=== PATIENT | female | born 1995 | race Caucasian/White ===

== ENCOUNTER 2017-06-24 03:53 | Emergency (ER) | payer BC, OTHER ==
[2017-06-24 04:26] LABS: BASOPHILS # (AUTO) 0.1 10^3/uL (0.0-0.1); BASOPHILS % (AUTO) 1.5 %; EOSINOPHILS % (AUTO) 0.5 %; HGB - HEMOGLOBIN 15.1 g/dL (12.0-16.0); LYMPHOCYTES % (AUTO) 22.1 %; MEAN CORPUSCULAR HEMOGLOBIN 33.6 pg (27.0-31.0); MEAN CORPUSCULAR HGB CONC 35.8 g/dL (32.0-36.0); MEAN CORPUSCULAR VOLUME 93.8 fL (81.0-99.0); MEAN PLATELET VOLUME 7.7 fL (7.9-10.8); MONOCYTES # (AUTO) 0.6 10^3/uL (0.0-1.0); MONOCYTES % (AUTO) 14.1 %; NEUTROPHILS # (AUTO) 2.8 10^3/uL (1.5-6.6); NEUTROPHILS % (AUTO) 61.8 %; PLT - PLATELET COUNT 160 10^3/uL (130-450); RED CELL DISTRIBUTION WIDTH 12.8 % (12.0-15.0); WHITE BLOOD COUNT 4.5 x10^3/uL (4.8-10.8)
[2017-06-24 04:27] LABS: BILIRUBIN,URINE NEGATIVE (NEGATIVE); GLUCOSE, URINE (UA) NEGATIVE (NEGATIVE); KETONES,URINE (UA) NEGATIVE (NEGATIVE); LEUKOCYTE ESTERASE, URINE TRACE (NEGATIVE); NITRITE,URINE NEGATIVE (NEGATIVE); OCCULT BLOOD,URINE TRACE-LYSE (NEGATIVE); PH,URINE 5.5 PH (5.0-7.5); PROTEIN,URINE NEGATIVE (NEGATIVE); UROBILINOGEN,URINE 0.2 (NORMAL) E.U./dL (NORMAL)
[2017-06-24 04:29] LABS: CLARITY,URINE CLEAR (CLEAR); HCG UR QUAL NEGATIVE
[2017-06-24 04:33] LABS: CALCIUM 8.6 mg/dL (8.5-10.3); CREATININE 0.7 mg/dL (0.4-1.0)
[2017-06-24 04:38] LABS: RBC,URINE 0-5 /HPF (0-5); SQUAMOUS EPITHELIAL CELL,UR MANY Squamous (<= Few)
[2017-06-24 04:39] LABS: BACTERIA,URINE Few /HPF (None Seen)
[2017-06-24] MEDS ORDERED: KETOROLAC 60 MG/2 ML VIAL IM STA (04:48)
--- NOTE | 2017-06-24 05:15 | ED Physician Documentation ---
History of Present Illness - Stated complaint Stated Complaint: FEVERISH,NUMB FINGERTIPS - Chief complaint Chief Complaint: General - History obtained from History obtained from: Patient, Family, Friend - History of Present Illness Timing: How many weeks ago (1) - Additonal information Additional information: Patient is a 22 year old female who is presenting to the emergency department for generalized weakness, tiredness sore throat and a lump on the back of her neck. Patient states that she went to see her doctor who did a strep test but was negative and was not sure exactly what was going on. patient states that she does have a history of mono. Review of Systems Constitutional: reports: Fever, Chills, Myalgias Eyes: denies: Decreased vision, Photophobia Ears: denies: Ear pain, Drainage/discharge Nose: denies: Congestion Throat: reports: Sore throat. denies: Dental pain / toothache Cardiac: denies: Chest pain / pressure Respiratory: denies: Cough, Wheezing GI: reports: Abdominal Pain, Constipation. denies: Nausea, Vomiting : denies: Dysuria, Frequency Skin: reports: Lesions. denies: Rash Musculoskeletal: reports: Neck pain Neurologic: reports: Generalized weakness, Numbness, Headache. denies: Focal weakness, Head injury Immunocompromised: denies: Immunocompromised PD PAST MEDICAL HISTORY - Past Medical History Respiratory: Asthma, Other - Past Surgical History Past Surgical History: No - Present Medications Home Medications: Ambulatory Orders Medication Instructions Recorded Confirmed No Known Home Medications [No 02/06/15 06/24/17 Known Home Medications] - Allergies Allergies/Adverse Reactions: Allergies Allergy/AdvReac Type Severity Reaction Status Date / Time amitriptyline Allergy Hives Verified 06/24/17 04:01 - Social History Does the pt smoke?: No Smoking Status: Never smoker Does the pt drink ETOH?: No Does the pt have substance abuse?: No - Immunizations Immunizations are current?: Yes PD ED PE NORMAL - Vitals Vital signs reviewed: Yes - General General: Alert and oriented X 3, No acute distress - HEENT HEENT: Atraumatic, PERRL, Moist mucous membranes - Cardiac Cardiac: RRR, No murmur - Respiratory Respiratory: No respiratory distress - Abdomen Abdomen: Soft, Non tender, No organomegaly - Derm Derm: Normal color, Warm and dry, No rash - Extremities Extremities: No deformity, Normal ROM s pain - Neuro Neuro: Alert and oriented X 3, No motor deficit, No sensory deficit, Normal speech Eye Opening: Spontaneous Motor: Obeys Commands Verbal: Oriented GCS Score: 15 - Psych Psych: Normal mood PD ED PE EXPANDED - HEENT HEENT: Soft palate petecchiae - Neck Neck: Adenopathy (left posterior adenopathy) Results - Vitals Vitals: Vital Signs - 24 hr 06/24/17 06/24/17 03:58 05:21 Temperature 37.0 C Heart Rate 105 H 77 Respiratory 16 16 Rate Blood Pressure 116/68 109/63 O2 Saturation 98 95 Oxygen O2 Source Room air - Labs Labs: Laboratory Tests 06/24/17 06/24/17 06/24/17 04:11 04:12 04:20 WBC 4.5 L RBC 4.50 Hgb 15.1 Hct 42.2 MCV 93.8 MCH 33.6 H MCHC 35.8 RDW 12.8 Plt Count 160 MPV 7.7 L Neut # 2.8 Lymph # 1.0 L [place] # 0.6 Eos # 0.0 Baso # 0.1 Absolute Nucleated RBC 0.01 Nucleated RBC % 0.1 Sodium Potassium Chloride Carbon Dioxide Anion Gap BUN Creatinine Estimated GFR (MDRD) Glucose Calcium Urine Color YELLOW Urine Clarity CLEAR Urine pH 5.5 Ur Specific [place] 1.025 Urine Protein NEGATIVE Urine Glucose (UA) NEGATIVE Urine Ketones NEGATIVE Urine Occult Blood TRACE-LYSE Urine Nitrite NEGATIVE Urine Bilirubin NEGATIVE Urine Urobilinogen 0.2 (NORMAL) Ur Leukocyte Esterase TRACE H Urine RBC 0-5 Urine WBC 4-5 Ur Squamous Epith Cells MANY Squamous H Urine Bacteria Few Ur Microscopic Review INDICATED Urine Culture Comments NOT INDICATED Urine HCG, Qual NEGATIVE Infectious [place] Assay Influenza A (Rapid) Negative Influenza B (Rapid) Negative Influenza Types A,B Ag - 06/24/17 06/24/17 04:20 04:20 WBC RBC Hgb Hct MCV MCH MCHC RDW Plt Count MPV Neut # Lymph # [place] # Eos # Baso # Absolute Nucleated RBC Nucleated RBC % Sodium 136 Potassium 3.2 L Chloride 108 Carbon Dioxide 21 Anion Gap 7.0 BUN 9 Creatinine 0.7 Estimated GFR (MDRD) 107 Glucose 110 H Calcium 8.6 Urine Color Urine Clarity Urine pH Ur Specific [place] Urine Protein Urine Glucose (UA) Urine Ketones Urine Occult Blood Urine Nitrite Urine Bilirubin Urine Urobilinogen Ur Leukocyte Esterase Urine RBC Urine WBC Ur Squamous Epith Cells Urine Bacteria Ur Microscopic Review Urine Culture Comments Urine HCG, Qual Infectious [place] Assay NEGATIVE Influenza A (Rapid) Influenza B (Rapid) Influenza Types A,B Ag PD MEDICAL DECISION MAKING - ED course Complexity details: reviewed old records, reviewed results, re-evaluated patient , considered differential, d/w patient, d/w family ED course: patient was seen and examined at bedside. labs were drawn, urine was collected. patient was treated with toradol for pain. Patient's symptoms were consistent with mono even though the test was negative. Patient required no further testing at this time and was stable for discharge with outpatient follow up. Departure - Departure Disposition: Home, Self Care Clinical Impression: Mononucleosis syndrome Condition: Good Instructions: ED Mononucleosis Follow-Up: primary,care provider [Other] - Within 1 week Comments: Your symptoms today are likely being caused by mononucleosis. There is no cure for it, only supportive treatment. You should continue to work with your infectious disease doctor. You should stay well hydrated and get plenty of rest. You should try to avoid tylenol and contact sports or strenuous physical events. You may return to the emergency department at any time for new, worsening or uncontrollable symptoms. Discharge Date/Time: 06/24/17 05:21
[2017-06-24 05:22] VITALS: BP 109/63
== END 2017-06-24 05:21 | disposition home or self-care (01) ==
LOC: ED 03:53
DX: B27.90 Infectious mononucleosis, unspecified without complication (principal)
CPT/HCPCS: 80048; 81001; 81003; 81025; 85025; 86308; 87086; 87275; 87276; 96372; 99283

== ENCOUNTER 2017-07-01 10:06 | Outpatient (CLI) | payer OTHER ==
[2017-07-05 05:51] LABS: HSV 2 DNA NOT DETECTED; SOURCE VULVA
== END 2017-07-01 10:07 | disposition home or self-care (01) ==
LOC: LAB.R 10:06
PROVIDERS: ATTEND Nurse Practitioner Obstetrics & Gynecology
DX: N89.8 Other specified noninflammatory disorders of vagina (principal)
CPT/HCPCS: 87529

== ENCOUNTER 2017-07-01 11:05 | Outpatient (CLI) | payer OTHER ==
[2017-07-05 13:36] LABS: HSV 1 IGG TYPE SPECIFIC AB <0.90 index; HSV 2 IGG TYPE SPECIFIC AB <0.90 index
== END 2017-07-01 11:06 | disposition home or self-care (01) ==
LOC: LAB 11:05
PROVIDERS: ATTEND Nurse Practitioner Obstetrics & Gynecology
DX: N89.8 Other specified noninflammatory disorders of vagina (principal)
CPT/HCPCS: 36415; 81599; 86695; 86696; 87529

== ENCOUNTER 2017-07-07 10:47 | Outpatient (CLI) | payer OTHER ==
[2017-07-07 11:55] LABS: HGB - HEMOGLOBIN 14.5 g/dL (12.0-16.0); MEAN CORPUSCULAR HEMOGLOBIN 32.3 pg (27.0-31.0); MEAN CORPUSCULAR HGB CONC 35.2 g/dL (32.0-36.0); MEAN CORPUSCULAR VOLUME 91.7 fL (81.0-99.0); MEAN PLATELET VOLUME 7.1 fL (7.9-10.8); RED BLOOD COUNT 4.49 10^6/uL (4.20-5.40); RED CELL DISTRIBUTION WIDTH 12.7 % (12.0-15.0)
[2017-07-08 09:11] LABS: HIV AG/AB 4TH GEN NON-REACTIVE (NON-REACTIVE)
[2017-07-09 20:27] LABS: SOURCE BLOOD
== END 2017-07-07 10:48 | disposition home or self-care (01) ==
LOC: LAB 10:47
PROVIDERS: ATTEND Nurse Practitioner Obstetrics & Gynecology
DX: N76.6 Ulceration of vulva (principal)
CPT/HCPCS: 36415; 81599; 85651; 86140; 86592; 87389; 87798

== ENCOUNTER 2017-12-09 13:22 | Outpatient (CLI) | payer OTHER ==
[2017-12-09 15:02] LABS: CRP - C-REACTIVE PROTEIN < 1.0 mg/dL (0-1.0)
[2017-12-09 15:15] LABS: THYROID STIMULATING HORMONE 1.45 uIU/mL (0.34-5.60)
[2017-12-09 15:26] LABS: FOLATE 18.18 ng/mL (5.90 - >24.8)
[2017-12-09 17:06] LABS: RHEUMATOID FACTOR NEGATIVE (Negative)
== END 2017-12-09 13:23 | disposition home or self-care (01) ==
LOC: LAB 13:22
PROVIDERS: ATTEND Psychiatry & Neurology Neurology
DX: G90.09 Other idiopathic peripheral autonomic neuropathy (principal)
CPT/HCPCS: 36415; 81599; 82164; 82306; 82384; 82607; 82746; 83520; 84443; 85651; 86038; 86140; 86235; 86334; 86430

== ENCOUNTER 2018-01-10 08:00 | Outpatient (CLI) | payer OTHER | END 2018-01-10 23:59 | LOC: LAB.R 08:00 | PROVIDERS: ATTEND Registered Nurse | DX: R10.2 Pelvic and perineal pain (principal) | CPT/HCPCS: 87086; 87491; 87591 ==

== ENCOUNTER 2018-01-13 18:55 | Outpatient (CLI) | payer OTHER ==
--- NOTE | 2018-01-14 02:20 | Ultrasound Report ---
Reason: PELVIC PAIN Procedure Date: 01/13/2018 Accession Number: [id number] / [id number] Procedure: US - Pelvic Complete CPT Code: FULL RESULT: EXAM: PELVIC ULTRASOUND EXAM DATE: 01/13/2018 08:49 PM. CLINICAL HISTORY: Pelvic pain. COMPARISON: None. TECHNIQUE: Realtime transabdominal pelvic scan performed to identify the uterus and adnexa and as an overview of other pelvic structures, with static image documentation. FINDINGS: Uterus: 7.9 x 5.8 x 3.3 cm, volume 78.6 cc. Anteverted position. Normal overall size and echotexture. Masses: None. Endometrium: 3.6 mm. Normal. Cervix: Unremarkable. Right Ovary: 2.3 x 1.3 x 1.2 cm, volume 1.9 cc. Normal echotexture and blood flow. Left Ovary: 2.6 x 1.5 x 1.8 cm, volume 3.7 cc. Normal echotexture and blood flow. Free Fluid: None. Other: None. IMPRESSION: Normal pelvic ultrasound. RADIA
== END 2018-01-13 18:56 | disposition home or self-care (01) ==
LOC: DI 18:55
PROVIDERS: ATTEND Registered Nurse
DX: R10.2 Pelvic and perineal pain (principal)
CPT/HCPCS: 76856

== ENCOUNTER 2018-01-25 00:36 | Emergency (ER) | payer OTHER ==
--- NOTE | 2018-01-25 01:03 | ED Physician Documentation ---
PD HPI CHEST PAIN - Stated complaint Stated Complaint: LT UPPER RIB PAIN - Chief complaint Chief Complaint: General - History obtained from History obtained from: Patient - History of Present Illness Timing - onset: Today Timing - details: Intermittant Quality: Pain Location: Left chest Worsened by: Movement, Palpation, Position Associated symptoms: Shortness of air. No: Nausea, Vomiting, Feeling faint / dizzy Similar symptoms before: Work up / diagnostics Recently seen: Not recently seen - Additional information Additional information: Patient is a 22 year old female presenting to the emergency department for chest pain. patient states that the pain started today. patient reports that the pain got worse with sweeping and that she recently was doing physical therapy and had to use resistance bands. patient states that tonight she became a little more worried because she had some shortness of breath secondary to the pain and the patient has had spontaneous pneumothoracies bilaterally. Review of Systems Ten Systems: 10 systems reviewed and negative Cardiac: reports: Chest pain / pressure Respiratory: denies: Dyspnea, Cough, Wheezing PD PAST MEDICAL HISTORY - Past Medical History Respiratory: Asthma, Other Other Past Medical History: spontaneous pnuemo x 2 - Past Surgical History Past Surgical History: No - Present Medications Home Medications: Ambulatory Orders Medication Instructions Recorded Confirmed Lidocaine Patch 5% [Lidoderm Patch] 1 each TOP DAILY #10 patch 01/25/18 - Allergies Allergies/Adverse Reactions: Allergies Allergy/AdvReac Type Severity Reaction Status Date / Time amitriptyline Allergy Hives Verified 01/25/18 00:44 - Social History Does the pt smoke?: No Smoking Status: Never smoker Does the pt drink ETOH?: No Does the pt have substance abuse?: No - Immunizations Immunizations are current?: Yes PD ED PE NORMAL - Vitals Vital signs reviewed: Yes - General General: Alert and oriented X 3, No acute distress - HEENT HEENT: Atraumatic, PERRL - Neck Neck: No JVD - Cardiac Cardiac: RRR, No murmur - Respiratory Respiratory: No respiratory distress, Clear bilaterally - Derm Derm: Normal color, No rash - Extremities Extremities: No deformity, No calf tenderness / cord - Neuro Neuro: Alert and oriented X 3, No motor deficit, Normal speech Eye Opening: Spontaneous PD ED PE EXPANDED - Cardiac Cardiac: Chest wall TTP (tenderness to palpation of left anterior chest wall) Results - Vitals Vitals: Vital Signs - 24 hr 01/25/18 00:41 Temperature 36.8 C Heart Rate 109 H Respiratory 18 Rate Blood Pressure 134/78 H O2 Saturation 98 Oxygen O2 Source Room air - Rads (name of study) chest x-ray Radiology: Final report received (no pneumothorax or infiltrate) PD MEDICAL DECISION MAKING - ED course Complexity details: reviewed old records, reviewed results, re-evaluated patient, considered differential, d/w patient, d/w family ED course: Patient was seen and examined at bedside. patient's symptoms seemed likely to be muscular but do to patient's history chest x-ray was ordered. patient also stated that she persistently was tachycardic and often was in the 120s. When patient returned from imaging results were reviewed and revealed no pneumo. patient was treated with a lidoderm patch and was stable for discharge with outpatient follow up. - Sepsis Event Vital Signs: Vital Signs - 24 hr 01/25/18 00:41 Temperature 36.8 C Heart Rate 109 H Respiratory 18 Rate Blood Pressure 134/78 H O2 Saturation 98 Oxygen O2 Source Room air Departure - Departure Disposition: 01 Home, Self Care Clinical Impression: Chest wall pain Condition: Good Instructions: ED Strain Chest Wall Follow-Up: Becca Simons PA [Primary Care Provider] - Within 3 Days Prescriptions: Lidocaine Patch 5% [Lidoderm Patch] 1 each TOP DAILY #10 patch Comments: Your diagnostics today were within normal limits. there is no sign of pnuemothorax or pneumonia. It is likely secondary to muscle strain. You should take motrin or tylenol as needed for pain and you can apply ice/heat and lidoderm patches. You should follow up with your doctor if symptoms persist. You may return to the emergency department at any time for new, worsening or uncontrollable symptoms.
--- NOTE | 2018-01-25 01:30 | XRAY Report ---
Reason: chest pain, hx of spontaneous pneumo Procedure Date: 01/25/2018 Accession Number: [id number] / [id number] Procedure: XR - Chest 1 View X-Ray CPT Code: 59161 FULL RESULT: EXAM: CHEST RADIOGRAPHY EXAM DATE: 01/25/2018 01:05 AM. CLINICAL HISTORY: Chest pain, history of spontaneous pneumothorax. COMPARISON: CHEST 2 VIEW PA/LAT 02/06/2015 5:37 PM. TECHNIQUE: 1 view. FINDINGS: Lungs/Pleura: New elevated right hemidiaphragm with mild blunting of the right costophrenic angle. No consolidation or pneumothorax. Mediastinum: Stable cardiomediastinal silhouette. Other: None. IMPRESSION: 1. New elevated right hemidiaphragm. Mild blunting of the right costophrenic angle. Small right pleural effusion or pleural thickening not excluded. 2. No pneumothorax or consolidation. RADIA
[2018-01-25 01:39] VITALS: BP 118/80
[2018-01-25] MEDS ORDERED: LIDOCAINE PATCH 5% TOP STA (01:49)
== END 2018-01-25 02:02 | disposition home or self-care (01) ==
LOC: ED 00:36
DX: R07.89 Other chest pain (principal)
CPT/HCPCS: 71045; 99283; A9270

== ENCOUNTER 2018-03-08 15:37 | Outpatient (CLI) | payer OTHER | END 2018-03-08 23:59 | disposition home or self-care (01) | LOC: LAB.R 15:37 | PROVIDERS: ATTEND Registered Nurse | DX: R10.2 Pelvic and perineal pain (principal); B37.3 Candidiasis of vulva and vagina; N76.0 Acute vaginitis | CPT/HCPCS: 87491; 87591 ==

== ENCOUNTER 2018-05-23 08:00 | Outpatient (CLI) | payer BC, OTHER | END 2018-05-23 23:59 | disposition home or self-care (01) | LOC: LAB.R 08:00 | PROVIDERS: ATTEND Registered Nurse | DX: N94.10 Unspecified dyspareunia (principal) | CPT/HCPCS: 87491; 87591 ==

== ENCOUNTER 2018-06-19 11:18 | Outpatient (CLI) | payer BC | END 2018-06-19 11:19 | disposition home or self-care (01) | LOC: DI 11:18 | PROVIDERS: ATTEND Physician Assistant | DX: I49.8 Other specified cardiac arrhythmias (principal) | CPT/HCPCS: 93306 ==

== ENCOUNTER 2018-06-21 13:48 | Outpatient (CLI) | payer BC ==
[2018-06-21 14:32] LABS: % IRON SATURATION 36 % (20-50); IRON 116 ug/dL (28-170); TOTAL IRON BINDING CAPACITY 323 ug/dL (250-450); TRANSFERRIN 231 mg/dL (192-382)
[2018-06-21 14:33] LABS: BASOPHILS # (AUTO) 0.1 10^3/uL (0.0-0.1); BASOPHILS % (AUTO) 0.8 %; EOSINOPHILS # (AUTO) 0.1 10^3/uL (0.0-0.7); EOSINOPHILS % (AUTO) 1.2 %; LYMPHOCYTES # (AUTO) 2.5 10^3/uL (1.5-3.5); LYMPHOCYTES % (AUTO) 38.5 %; MEAN CORPUSCULAR HGB CONC 34.7 g/dL (32.0-36.0); MEAN PLATELET VOLUME 8.2 fL (7.9-10.8); MONOCYTES # (AUTO) 0.4 10^3/uL (0.0-1.0); NEUTROPHILS # (AUTO) 3.3 10^3/uL (1.5-6.6); NEUTROPHILS % (AUTO) 52.5 %; PLT - PLATELET COUNT 218 10^3/uL (130-450); RED BLOOD COUNT 4.85 10^6/uL (4.20-5.40); RED CELL DISTRIBUTION WIDTH 12.4 % (12.0-15.0); WHITE BLOOD COUNT 6.4 x10^3/uL (4.8-10.8)
[2018-06-21 14:34] LABS: THYROID STIMULATING HORMONE 1.81 uIU/mL (0.34-5.60)
[2018-06-21 14:41] LABS: FERRITIN 38.8 ng/mL (11.0-306.8)
== END 2018-06-21 13:49 | disposition home or self-care (01) ==
LOC: LAB 13:48
PROVIDERS: ATTEND Registered Nurse
DX: R40.0 Somnolence (principal)
CPT/HCPCS: 36415; 82306; 82607; 82728; 83540; 84443; 84466; 85025

== ENCOUNTER 2019-01-03 14:50 | Outpatient (CLI) | payer BC ==
[2019-01-03 18:55] LABS: BASOPHILS # (AUTO) 0.1 10^3/uL (0.0-0.1); BASOPHILS % (AUTO) 1.1 %; EOSINOPHILS # (AUTO) 0.1 10^3/uL (0.0-0.7); EOSINOPHILS % (AUTO) 0.8 %; HGB - HEMOGLOBIN 14.7 g/dL (12.0-16.0); LYMPHOCYTES # (AUTO) 2.1 10^3/uL (1.5-3.5); LYMPHOCYTES % (AUTO) 33.7 %; MEAN CORPUSCULAR HEMOGLOBIN 33.2 pg (27.0-31.0); MEAN CORPUSCULAR HGB CONC 34.1 g/dL (32.0-36.0); MEAN CORPUSCULAR VOLUME 97.3 fL (81.0-99.0); MEAN PLATELET VOLUME 11.2 fL (7.9-10.8); MONOCYTES # (AUTO) 0.4 10^3/uL (0.0-1.0); MONOCYTES % (AUTO) 6.7 %; NEUTROPHILS # (AUTO) 3.6 10^3/uL (1.5-6.6); NEUTROPHILS % (AUTO) 57.2 %; PLT - PLATELET COUNT 228 10^3/uL (130-450); RED BLOOD COUNT 4.43 10^6/uL (4.20-5.40); RED CELL DISTRIBUTION WIDTH 12.2 % (12.0-15.0); WHITE BLOOD COUNT 6.3 x10^3/uL (4.8-10.8)
[2019-01-03 19:34] LABS: ALBUMIN 4.7 g/dL (3.2-5.5); ALBUMIN/GLOBULIN RATIO 1.4 (1.0-2.2); BILIRUBIN,TOTAL 2.6 mg/dL (0.2-1.0); CALCIUM 9.5 mg/dL (8.5-10.3); CREATININE 0.7 mg/dL (0.4-1.0); TOTAL PROTEIN 8.1 g/dL (6.7-8.2)
== END 2019-01-03 23:59 | disposition home or self-care (01) ==
LOC: LAB.WCP 14:50
PROVIDERS: ATTEND Family Medicine
DX: E55.9 Vitamin D deficiency, unspecified (principal); J45.20 Mild intermittent asthma, uncomplicated; R53.83 Other fatigue
CPT/HCPCS: 36415; 80053; 82306; 84443; 85025

== ENCOUNTER 2019-03-02 08:00 | Outpatient (CLI) | payer BC ==
[2019-03-02 22:30] LABS: TRICHOMONAS VAGINALIS DNA NEGATIVE (NEGATIVE)
== END 2019-03-02 23:59 | disposition home or self-care (01) ==
LOC: LAB.R 08:00
PROVIDERS: ATTEND Obstetrics & Gynecology
DX: Z11.3 Encounter for screening for infections with a predominantly sexual mode of transmission (principal)
CPT/HCPCS: 87491; 87591; 87661

== ENCOUNTER 2019-04-02 00:44 | Emergency (ER) | payer BC ==
[2019-04-02 01:07] LABS: BASOPHILS # (AUTO) 0.1 10^3/uL (0.0-0.1); BASOPHILS % (AUTO) 0.8 %; EOSINOPHILS # (AUTO) 0.1 10^3/uL (0.0-0.7); EOSINOPHILS % (AUTO) 1.7 %; HGB - HEMOGLOBIN 15.3 g/dL (12.0-16.0); LYMPHOCYTES # (AUTO) 3.4 10^3/uL (1.5-3.5); LYMPHOCYTES % (AUTO) 40.2 %; MEAN CORPUSCULAR HEMOGLOBIN 33.8 pg (27.0-31.0); MEAN CORPUSCULAR HGB CONC 34.9 g/dL (32.0-36.0); MEAN CORPUSCULAR VOLUME 96.9 fL (81.0-99.0); MEAN PLATELET VOLUME 10.3 fL (7.9-10.8); MONOCYTES # (AUTO) 0.7 10^3/uL (0.0-1.0); MONOCYTES % (AUTO) 7.8 %; NEUTROPHILS # (AUTO) 4.1 10^3/uL (1.5-6.6); PLT - PLATELET COUNT 231 10^3/uL (130-450); RED BLOOD COUNT 4.53 10^6/uL (4.20-5.40); RED CELL DISTRIBUTION WIDTH 11.9 % (12.0-15.0); WHITE BLOOD COUNT 8.4 x10^3/uL (4.8-10.8)
[2019-04-02 01:21] LABS: ALBUMIN 4.6 g/dL (3.2-5.5); ALBUMIN/GLOBULIN RATIO 1.3 (1.0-2.2); BILIRUBIN,TOTAL 1.4 mg/dL (0.2-1.0); CALCIUM 9.5 mg/dL (8.5-10.3); CREATININE 0.7 mg/dL (0.4-1.0); TOTAL PROTEIN 8.2 g/dL (6.7-8.2)
[2019-04-02 01:28] LABS: BILIRUBIN,URINE NEGATIVE (NEGATIVE); CLARITY,URINE CLEAR (CLEAR); GLUCOSE, URINE (UA) NEGATIVE (NEGATIVE); KETONES,URINE (UA) NEGATIVE (NEGATIVE); LEUKOCYTE ESTERASE, URINE MODERATE (NEGATIVE); NITRITE,URINE NEGATIVE (NEGATIVE); OCCULT BLOOD,URINE LARGE (NEGATIVE); PROTEIN,URINE NEGATIVE (NEGATIVE); UROBILINOGEN,URINE 0.2 (NORMAL) E.U./dL (NORMAL)
[2019-04-02 01:29] LABS: HCG UR QUAL NEGATIVE
[2019-04-02 01:34] LABS: BACTERIA,URINE Few /HPF (None Seen); SQUAMOUS EPITHELIAL CELL,UR MANY Squamous (<= Few)
[2019-04-02] MEDS ORDERED: KETOROLAC 60 MG/2 ML VIAL IM STA (01:43)
--- NOTE | 2019-04-02 01:44 | ED Physician Documentation ---
PD HPI FEMALE - Stated complaint Stated Complaint: AB PX - Chief complaint Chief Complaint: Abd Pain - History obtained from History obtained from: Patient, Family - History of Present Illness Timing - onset: Today Timing - duration: Hours Timing - details: Abrupt onset, Still present Associated symptoms: Pelvic pain, Vaginal bleeding Contributing factors: IUD Similar symptoms before: Diagnosis (pain associated with IUD) Recently seen: Clinic - Additional information Additional information: 24-year-old female with a history of intermittent pelvic pain has recently stopped the use of Depo-Provera and switched to Mirena. She had a Mirena placed 1 month ago. She has been having some periodic sharp cramping in the pelvis. Today she has had episodes lasting longer and more painful. She is come to the emergency department for evaluation. She does have some bleeding associated with this and she has had some dark blood. Review of Systems Constitutional: denies: Fever Eyes: denies: Decreased vision Ears: denies: Ear pain Nose: denies: Congestion Throat: denies: Sore throat Respiratory: denies: Cough GI: reports: Abdominal Pain, Nausea. denies: Vomiting, Constipation, Diarrhea : reports: Dysuria Skin: denies: Rash Musculoskeletal: denies: Neck pain, Back pain, Extremity pain Neurologic: denies: Generalized weakness, Focal weakness, Numbness PD PAST MEDICAL HISTORY - Past Medical History Respiratory: Asthma, Other - Past Surgical History Past Surgical History: No - Present Medications Home Medications: Ambulatory Orders Medication Instructions Recorded Confirmed Citalopram Hydrobromide [Celexa] 1 tab PO DAILY 04/02/19 04/02/19 Sulfamethoxazole/Trimethoprim 1 each PO BID #10 tablet 04/02/19 [Sulfamethoxazole-Tmp Ds Tablet] hydrOXYzine HCl [Hydroxyzine HCl] 25 mg PO DAILY PRN 04/02/19 04/02/19 - Allergies Allergies/Adverse Reactions: Allergies Allergy/AdvReac Type Severity Reaction Status Date / Time amitriptyline Allergy Hives Verified 04/02/19 00:49 - Social History Does the pt smoke?: No Smoking Status: Never smoker Does the pt drink ETOH?: No Does the pt have substance abuse?: No - Immunizations Immunizations are current?: Yes PD ED PE NORMAL - Vitals Vital signs reviewed: Yes (hypertensive ) - General General: Alert and oriented X 3, No acute distress, Well developed/nourished - HEENT HEENT: Atraumatic, PERRL, EOMI - Neck Neck: Supple, no meningeal sign, No bony TTP - Cardiac Cardiac: RRR, No murmur - Respiratory Respiratory: No respiratory distress, Clear bilaterally - Abdomen Abdomen: Soft, Other (suprapubic tenderness is mild ) - Back Back: No CVA TTP, No spinal TTP - Derm Derm: Normal color, Warm and dry, No rash - Extremities Extremities: No deformity, No edema - Neuro Neuro: Alert and oriented X 3, register of deeds 2-12 intact, No motor deficit, No sensory deficit, Normal speech Eye Opening: Spontaneous Motor: Obeys Commands Verbal: Oriented GCS Score: 15 - Psych Psych: Normal mood, Normal affect Results - Vitals Vitals: Vital Signs - 24 hr 04/02/19 00:46 Temperature 36.9 C Heart Rate 89 Respiratory 18 Rate Blood Pressure 132/88 H O2 Saturation 99 Oxygen O2 Source Room air - Labs Labs: Laboratory Tests 04/02/19 04/02/19 04/02/19 01:00 01:00 01:20 WBC 8.4 RBC 4.53 Hgb 15.3 Hct 43.9 MCV 96.9 MCH 33.8 H MCHC 34.9 RDW 11.9 L Plt Count 231 MPV 10.3 Neut # (Auto) 4.1 Lymph # (Auto) 3.4 [place] # (Auto) 0.7 Eos # (Auto) 0.1 Baso # (Auto) 0.1 Absolute Nucleated RBC 0.00 Nucleated RBC % 0.0 Sodium 140 Potassium 3.4 L Chloride 105 Carbon Dioxide 25 Anion Gap 10.0 BUN 14 Creatinine 0.7 Estimated GFR (MDRD) 105 Glucose 110 H Calcium 9.5 Total Bilirubin 1.4 H AST 17 ALT 13 Alkaline Phosphatase 67 Total Protein 8.2 Albumin 4.6 Globulin 3.6 Albumin/Globulin Ratio 1.3 Lipase 34 Urine Color YELLOW Urine Clarity CLEAR Urine pH 6.0 Ur Specific [place] 1.015 Urine Protein NEGATIVE Urine Glucose (UA) NEGATIVE Urine Ketones NEGATIVE Urine Occult Blood LARGE H Urine Nitrite NEGATIVE Urine Bilirubin NEGATIVE Urine Urobilinogen 0.2 (NORMAL) Ur Leukocyte Esterase MODERATE H Urine RBC 11-25 H Urine WBC 6-10 H Ur Squamous Epith Cells MANY Squamous H Urine Bacteria Few Ur Microscopic Review INDICATED Urine Culture Comments NOT INDICATED Urine HCG, Qual NEGATIVE 04/02/19 02:06 WBC RBC Hgb Hct MCV MCH MCHC RDW Plt Count MPV Neut # (Auto) Lymph # (Auto) [place] # (Auto) Eos # (Auto) Baso # (Auto) Absolute Nucleated RBC Nucleated RBC % Sodium Potassium Chloride Carbon Dioxide Anion Gap BUN Creatinine Estimated GFR (MDRD) Glucose Calcium Total Bilirubin AST ALT Alkaline Phosphatase Total Protein Albumin Globulin Albumin/Globulin Ratio Lipase Urine Color YELLOW Urine Clarity CLEAR Urine pH 6.0 Ur Specific [place] <=1.005 Urine Protein NEGATIVE Urine Glucose (UA) NEGATIVE Urine Ketones NEGATIVE Urine Occult Blood MODERATE H Urine Nitrite NEGATIVE Urine Bilirubin NEGATIVE Urine Urobilinogen 0.2 (NORMAL) Ur Leukocyte Esterase TRACE H Urine RBC 6-10 H Urine WBC 4-5 Ur Squamous Epith Cells RARE Squamous Urine Bacteria Rare Ur Microscopic Review INDICATED Urine Culture Comments INDICATED Urine HCG, Qual Procedures - Bedside sono Bedside sono by EMP: With use of bedside ultrasound the pelvis is imaged the Mirena appears to be in a adequate position and there is no evidence of free fluid. PD MEDICAL DECISION MAKING - ED course Complexity details: reviewed results, re-evaluated patient, considered differential, d/w patient, d/w family ED course: 24-year-old female with a Mirena in place for the past month is having having intermittent pelvic cramping pain and today this is worse than usual and she has come in for evaluation. The Mirena appears to be in an adequate position with evaluation with bedside ultrasound, the patient is not . She does have evidence of urinary tract infection on urine evaluation. We did obtain a second specimen as the initial specimen was contaminated. We have given the patient a shot of Toradol for pain relief and we will have her follow-up with women's health for further decision-making. Departure - Departure Disposition: Home, Self Care Clinical Impression: Pelvic cramping Urinary tract infection Qualifiers: Urinary tract infection type: acute cystitis Hematuria presence: with hematuria Qualified Code(s): N30.01 - Acute cystitis with hematuria Condition: Stable Instructions: Control IUD, ED UTI Cystitis Female Follow-Up: Becca Simons PA [Primary Care Provider] - Sunitha Recio MD [Provider Admit Priv/Credential] - Prescriptions: Sulfamethoxazole/Trimethoprim [Sulfamethoxazole-Tmp Ds Tablet] 1 each PO BID #10 tablet
[2019-04-02] MEDS ORDERED: HYDROcod/ACET 5/325 Prepack 4 PO STA (02:15)
[2019-04-02 02:17] LABS: BILIRUBIN,URINE NEGATIVE (NEGATIVE); GLUCOSE, URINE (UA) NEGATIVE (NEGATIVE); KETONES,URINE (UA) NEGATIVE (NEGATIVE); LEUKOCYTE ESTERASE, URINE TRACE (NEGATIVE); NITRITE,URINE NEGATIVE (NEGATIVE); OCCULT BLOOD,URINE MODERATE (NEGATIVE); PROTEIN,URINE NEGATIVE (NEGATIVE); UROBILINOGEN,URINE 0.2 (NORMAL) E.U./dL (NORMAL)
[2019-04-02 02:18] LABS: CLARITY,URINE CLEAR (CLEAR)
[2019-04-02 02:23] LABS: BACTERIA,URINE Rare /HPF (None Seen); SQUAMOUS EPITHELIAL CELL,UR RARE Squamous (<= Few)
[2019-04-02] MEDS ORDERED: SULFAM/TRIM 800/160 Prepack 2 PO ONE (02:27)
[2019-04-02 02:30] VITALS: BP 110/68
== END 2019-04-02 02:35 | disposition home or self-care (01) ==
LOC: ED 00:44
DX: N30.01 Acute cystitis with hematuria (principal); Z97.5 Presence of (intrauterine) contraceptive device
CPT/HCPCS: 36415; 80053; 81001; 81003; 81025; 83690; 85025; 87077; 87086; 96372; 99283; 99284

== ENCOUNTER 2019-07-25 13:42 | Outpatient (CLI) | payer BC | END 2019-07-25 13:43 | disposition home or self-care (01) | LOC: COV 13:42 | PROVIDERS: ATTEND Family Medicine | DX: R05 Cough (principal); R50.9 Fever, unspecified | CPT/HCPCS: 81599 ==

== ENCOUNTER 2019-10-12 02:04 | Emergency (ER) | payer BC ==
--- NOTE | 2019-10-12 02:07 | ED Physician Documentation ---
History of Present Illness - Stated complaint Stated Complaint: CHEST/BACK BURNING - History obtained from History obtained from: Patient (Patient is a 24-year-old female presents with vague symptoms to include left arm right arm left chest and right chest discomfort after she was more physically active yesterday. Denies any syncope or fevers or shortness of breath.She Reports a history of spontaneous pneumothorax.), Other (Patient has a scheduled appointment today less than 5 hours from now at 8 AM with her primary care provider.) Review of Systems Constitutional: reports: Reviewed and negative Eyes: reports: Reviewed and negative Ears: reports: Reviewed and negative Nose: reports: Reviewed and negative Throat: reports: Reviewed and negative Cardiac: reports: Chest pain / pressure, Palpitations Respiratory: reports: Reviewed and negative GI: reports: Reviewed and negative : reports: Reviewed and negative Skin: reports: Reviewed and negative Musculoskeletal: reports: Reviewed and negative Neurologic: reports: Reviewed and negative Psychiatric: reports: Reviewed and negative Endocrine: reports: Reviewed and negative Immunocompromised: reports: Reviewed and negative PD PAST MEDICAL HISTORY - Past Medical History Respiratory: Asthma, Other - Past Surgical History Past Surgical History: No - Present Medications Home Medications: Ambulatory Orders Medication Instructions Recorded Confirmed Citalopram Hydrobromide [Celexa] 1 tab PO DAILY 04/02/19 04/02/19 Sulfamethoxazole/Trimethoprim 1 each PO BID #10 tablet 04/02/19 [Sulfamethoxazole-Tmp Ds Tablet] hydrOXYzine HCL [Hydroxyzine HCl] 25 mg PO DAILY PRN 04/02/19 04/02/19 - Allergies Allergies/Adverse Reactions: Allergies Allergy/AdvReac Type Severity Reaction Status Date / Time amitriptyline Allergy Hives Verified 10/12/19 02:12 - Social History Does the pt smoke?: No Smoking Status: Never smoker Does the pt drink ETOH?: No Does the pt have substance abuse?: No - Immunizations Immunizations are current?: Yes PD ED PE NORMAL - Vitals Vital signs reviewed: Yes - General General: Alert and oriented X 3, No acute distress, Well developed/nourished - HEENT HEENT: PERRL, Moist mucous membranes, Pharynx benign - Neck Neck: Supple, no meningeal sign, No bony TTP, No adenopathy, Thyroid normal, No JVD, No bruit - Cardiac Cardiac: RRR, No murmur, No gallop, No rub, Strong equal pulses - Respiratory Respiratory: No respiratory distress, Clear bilaterally - Abdomen Abdomen: Normal bowel sounds, Soft, Non tender, Non distended, No organomegaly - Derm Derm: Warm and dry - Extremities Extremities: No deformity, No tenderness to palpate, Normal ROM s pain, No edema, No calf tenderness / cord - Neuro Neuro: Alert and oriented X 3, 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 PERC O, HEART SCORE 0. cxr negative, ekg negative.), d/w patient, d/w family Departure - Departure Disposition: 01 Home, Self Care Clinical Impression: Chest wall pain Condition: Stable Instructions: ED Chest Pain Atypical Unkn Cause Follow-Up: Becca Simons PA [Primary Care Provider] - 10/12/19 Comments: Follow-up with your primary care provider today as scheduled.
[2019-10-12 03:24] VITALS: BP 115/76
--- NOTE | 2019-10-12 08:29 | XRAY Report ---
PROCEDURE: Chest 1 View X-Ray INDICATIONS: cp TECHNIQUE: One view of the chest was acquired. COMPARISON: Chest x-ray 01/25/2018 FINDINGS: Surgical changes and devices: None. Lungs and pleura: No pleural effusions or pneumothorax. Lungs are clear. Unchanged right hemidiaph ragm elevation. Mediastinum: Mediastinal contours appear normal. Heart size is normal. Bones and chest wall: No suspicious bony lesions. Overlying soft tissues appear unremarkable. IMPRESSION: No acute pulmonary process. The above findings are concordant with preliminary report. Reviewed by: Mine Noble MD on 10/12/2019 8:28 AM PDT Approved by: Mine Noble MD on 10/12/2019 8:28 AM PDT Station ID: [id number]
== END 2019-10-12 03:27 | disposition home or self-care (01) ==
LOC: ED 02:04
DX: R07.89 Other chest pain (principal)
CPT/HCPCS: 71045; 93005; 99283

== ENCOUNTER 2019-12-09 21:10 | Emergency (ER) | payer BC ==
[2019-12-09 21:15] VITALS: BP 139/80
[2019-12-09] MEDS ORDERED: CITALOPRAM HYDROBROMIDE 20 MG TABLET PO STA (21:21)
--- NOTE | 2019-12-09 21:29 | ED Physician Documentation ---
History of Present Illness - Stated complaint Stated Complaint: MED REFILL - Chief complaint Chief Complaint: General - History obtained from History obtained from: Patient - History of Present Illness Timing: How many days ago (2) Pain level max: 0 Pain level now: 0 - Additonal information Additional information: 24-year-old female states that she is out of her Celexa. Has been out for the past 3 days. She feels like she is withdrawing. She is having shakiness, lightheadedness and generally feeling unwell. She is on 40 mg and has been on 40 mg for over a year. Review of Systems Constitutional: denies: Fever, Chills GI: denies: Vomiting : denies: Now EGA Skin: denies: Rash PD PAST MEDICAL HISTORY - Past Medical History Respiratory: Asthma, Other Psych: Depression, Anxiety - Past Surgical History Past Surgical History: No - Present Medications Home Medications: Ambulatory Orders Medication Instructions Recorded Confirmed Citalopram Hydrobromide [Celexa] 1 tab PO DAILY 04/02/19 04/02/19 Sulfamethoxazole/Trimethoprim 1 each PO BID #10 tablet 04/02/19 [Sulfamethoxazole-Tmp Ds Tablet] hydrOXYzine HCL [Hydroxyzine HCl] 25 mg PO DAILY PRN 04/02/19 04/02/19 Cephalexin [Keflex] 500 mg PO Q6H #28 capsule 11/20/19 predniSONE [Prednisone] 40 mg PO DAILY #10 tablet 11/20/19 Citalopram Hydrobromide [Celexa] 40 mg PO DAILY #30 tablet 12/09/19 - Allergies Allergies/Adverse Reactions: Allergies Allergy/AdvReac Type Severity Reaction Status Date / Time amitriptyline Allergy Hives Verified 12/09/19 21:14 - Social History Does the pt smoke?: No Smoking Status: Never smoker Does the pt drink ETOH?: No Does the pt have substance abuse?: No - Immunizations Immunizations are current?: Yes - POLST Patient has POLST: No PD ED PE NORMAL - Vitals Vital signs reviewed: Yes - General General: Alert and oriented X 3, No acute distress - HEENT HEENT: Moist mucous membranes - Neck Neck: Supple, no meningeal sign - Respiratory Respiratory: No respiratory distress - Derm Derm: Warm and dry - Neuro Neuro: Alert and oriented X 3 Results - Vitals Vitals: Vital Signs - 24 hr 08/16/20 21:11 Temperature 36.8 C Heart Rate 115 H Respiratory 18 Rate Blood Pressure 139/80 H O2 Saturation 98 Oxygen O2 Source Room air PD MEDICAL DECISION MAKING - ED course Complexity details: considered differential, d/w patient ED course: 24-year-old female presents the emergency department out of her Celexa. Given a dose of 40 mg here. Will refill this medication for her as well. No other emergency medical condition at this time. Patient counseled regarding signs and symptoms for which I believe and urgent re-evaluation would be necessary. Patient with good understanding of and agreement to plan and is comfortable going home at this time This document was made in part using voice recognition software. While efforts are made to proofread this document, sound alike and grammatical errors may occur. Departure - Departure Disposition: 01 Home, Self Care Clinical Impression: Medication refill Condition: Good Follow-Up: Becca Simons PA [Primary Care Provider] - Tomorrow Prescriptions: Citalopram Hydrobromide [Celexa] 40 mg PO DAILY #30 tablet Comments: Return if you worsen. Follow up with your doctor for further medication refills.
== END 2019-12-09 21:35 | disposition home or self-care (01) ==
LOC: ED 21:10
DX: Z76.0 Encounter for issue of repeat prescription (principal)
CPT/HCPCS: 99282; 99283; J8499

== ENCOUNTER 2020-06-17 08:00 | Outpatient (CLI) | payer BC ==
--- NOTE | 2020-06-17 10:03 | XRAY Report ---
PROCEDURE: Chest 2 View X-Ray INDICATIONS: RIGHT SIDED CHEST PAIN TECHNIQUE: 2 view(s) of the chest. COMPARISON: 01/25/2018 and 10/12/2019. FINDINGS: Surgical changes and devices: None. Lungs and pleura: Stable eventration of the right hemidiaphragm. No pleural effusions or pneumothorax . Lungs are clear. Mediastinum: Mediastinal contours are normal. Heart size is normal. Bones and chest wall: No suspicious bony abnormalities. Soft tissues appear unremarkable. IMPRESSION: Stable examination of the chest. No acute cardiopulmonary abnormality seen. No focal con solidation. Reviewed by: Len Pearce MD on 06/17/2020 10:02 AM [facility] Approved by: Len Pearce MD on 06/17/2020 10:02 AM PST Station ID: [id number]
== END 2020-06-17 23:59 | disposition home or self-care (01) ==
LOC: DI.S 08:00
PROVIDERS: ATTEND Physician Assistant
DX: R07.89 Other chest pain (principal)

== ENCOUNTER 2020-08-10 21:16 | Emergency (ER) | payer BC ==
--- NOTE | 2020-08-10 21:30 | ED Physician Documentation ---
PD HPI NVD - Stated complaint Stated Complaint: FATIGUED,SHAKY,LIGHTHEADED - Chief complaint Chief Complaint: General - History obtained from History obtained from: Patient - History of Present Illness Timing - onset: How many hours ago (2) Timing - duration: Hours (2) Timing - details: Abrupt onset, Still present Associated symptoms: Loss of appetite, Other (patient with quick onset of feeling general fatigue, lightheaded, some nausea without obvious provocation (no environmental irritants, apparent fever, recent food, etc). Concerned about infections.). No: Fever, Abdominal pain Contributing factors: No: Sick contact, Bad food, Travel, Recent antibiotics, Alcohol use, Diabetes Improved by: No: Eating, Position Worsened by: Eating Similar symptoms before: Has not had sx before Recently seen: Not recently seen Review of Systems Constitutional: reports: Fatigue (just today). denies: Fever, Chills Nose: denies: Rhinorrhea / runny nose, Congestion Throat: denies: Sore throat Cardiac: denies: Chest pain / pressure Respiratory: denies: Dyspnea, Cough GI: reports: Nausea. denies: Abdominal Pain, Vomiting, Diarrhea : reports: Discharge (mild). denies: Dysuria Skin: denies: Rash, Lesions Neurologic: reports: Generalized weakness. denies: Focal weakness, Numbness, Altered mental status, Headache PD PAST MEDICAL HISTORY - Past Medical History Respiratory: Asthma, Other Psych: Depression, Anxiety - Past Surgical History Past Surgical History: No - Present Medications Home Medications: Ambulatory Orders Medication Instructions Recorded Confirmed hydrOXYzine HCL [Hydroxyzine HCl] 25 mg PO DAILY PRN 04/02/19 04/02/19 Citalopram Hydrobromide [Celexa] 40 mg PO DAILY #30 tablet 12/09/19 Buspirone HCl 7.5 mg PO BID 08/10/20 08/10/20 Dicyclomine [Bentyl] 20 mg PO QID 08/10/20 08/10/20 - Allergies Allergies/Adverse Reactions: Allergies Allergy/AdvReac Type Severity Reaction Status Date / Time amitriptyline Allergy Hives Verified 08/10/20 21:30 - Social History Does the pt smoke?: No Smoking Status: Never smoker Does the pt drink ETOH?: No Does the pt have substance abuse?: No - Immunizations Immunizations are current?: Yes - POLST Patient has POLST: No PD ED PE NORMAL - Vitals Vital signs reviewed: Yes - General General: Alert and oriented X 3, No acute distress, Well developed/nourished - HEENT HEENT: Ears normal, Pharynx benign - Neck Neck: Supple, no meningeal sign, No adenopathy - Cardiac Cardiac: RRR, No murmur - Respiratory Respiratory: Clear bilaterally - Abdomen Abdomen: Soft, Non tender - Female Female : Deferred (had her obtain self-swab for BV.) - Back Back: No CVA TTP - Derm Derm: Normal color, Warm and dry - Extremities Extremities: Normal ROM s pain, No edema, No calf tenderness / cord - Neuro Neuro: Alert and oriented X 3, No motor deficit, Normal speech Results - Vitals Vitals: Vital Signs - 24 hr 08/10/20 08/11/20 21:20 00:08 Temperature 36.7 C 36.4 C L Heart Rate 88 70 Respiratory 16 16 Rate Blood Pressure 118/58 L 111/50 L O2 Saturation 98 100 Oxygen O2 Source Room air - Labs Labs: Laboratory Tests 08/10/20 08/10/20 08/10/20 22:10 22:23 22:23 WBC 8.5 RBC 4.10 L Hgb 14.1 Hct 39.8 MCV 97.1 MCH 34.4 H MCHC 35.4 RDW 12.0 Plt Count 181 MPV 10.7 Neut # (Auto) 6.1 Lymph # (Auto) 1.7 Elk # (Auto) 0.6 Eos # (Auto) 0.1 Baso # (Auto) 0.1 Absolute Nucleated RBC 0.00 Nucleated RBC % 0.0 Sodium 142 Potassium 3.6 Chloride 109 Carbon Dioxide 24 Anion Gap 9.0 BUN 16 Creatinine 0.8 Estimated GFR (MDRD) 89 Glucose 111 H Calcium 9.2 Total Bilirubin 1.1 H AST 17 ALT 12 Alkaline Phosphatase 61 C-Reactive Protein < 1.0 Total Protein 7.3 Albumin 4.5 Globulin 2.8 Albumin/Globulin Ratio 1.6 Lipase 29 Urine Color COLORLESS Urine Clarity CLEAR Urine pH 6.5 Ur Specific [place] <=1.005 Urine Protein NEGATIVE Urine Glucose (UA) NEGATIVE Urine Ketones NEGATIVE Urine Occult Blood NEGATIVE Urine Nitrite NEGATIVE Urine Bilirubin NEGATIVE Urine Urobilinogen 0.2 (NORMAL) Ur Leukocyte Esterase NEGATIVE Ur Microscopic Review NOT INDICATED Urine Culture Comments NOT INDICATED Urine HCG, Qual NEGATIVE PD MEDICAL DECISION MAKING - ED course Complexity details: reviewed results, considered differential (not sure cause of symptoms. Can check blood sugar, lytes, assess (though gets Depo shot), UA for infection, COVID test, and she has some vag discharge so test for BV. ), d/w patient Departure - Departure Disposition: 01 Home, Self Care Clinical Impression: Light-headed feeling Condition: Stable Record reviewed to determine appropriate education?: Yes Comments: Your basic blood tests and urine test appear normal here. Vital signs are good as well. Is unclear the cause of your symptoms. Still pending are the Covid test and a vaginal test which should both result tomorrow. This would be looking for signs of early infections that may be causing these early symptoms. Stay well-hydrated. Recheck if feeling worse over the next couple of days. Discharge Date/Time: 08/11/20 00:10
[2020-08-10] MEDS ORDERED: ONDANSETRON ODT 4 MG TABLET TL STA (22:06)
[2020-08-10] MEDS ORDERED: ACETAMINOPHEN 325 MG TABLET PO STA (22:06)
[2020-08-10 22:23] LABS: BILIRUBIN,URINE NEGATIVE (NEGATIVE); CLARITY,URINE CLEAR (CLEAR); GLUCOSE, URINE (UA) NEGATIVE (NEGATIVE); KETONES,URINE (UA) NEGATIVE (NEGATIVE); LEUKOCYTE ESTERASE, URINE NEGATIVE (NEGATIVE); NITRITE,URINE NEGATIVE (NEGATIVE); OCCULT BLOOD,URINE NEGATIVE (NEGATIVE); PH,URINE 6.5 PH (5.0-7.5); PROTEIN,URINE NEGATIVE (NEGATIVE); UROBILINOGEN,URINE 0.2 (NORMAL) E.U./dL (NORMAL)
[2020-08-10 22:25] LABS: HCG UR QUAL NEGATIVE
[2020-08-10 22:28] LABS: BASOPHILS # (AUTO) 0.1 10^3/uL (0.0-0.1); BASOPHILS % (AUTO) 0.8 %; EOSINOPHILS # (AUTO) 0.1 10^3/uL (0.0-0.7); EOSINOPHILS % (AUTO) 1.1 %; HCT - HEMATOCRIT 39.8 % (37.0-47.0); HGB - HEMOGLOBIN 14.1 g/dL (12.0-16.0); LYMPHOCYTES # (AUTO) 1.7 10^3/uL (1.5-3.5); LYMPHOCYTES % (AUTO) 19.6 %; MEAN CORPUSCULAR HEMOGLOBIN 34.4 pg (27.0-31.0); MEAN CORPUSCULAR HGB CONC 35.4 g/dL (32.0-36.0); MEAN CORPUSCULAR VOLUME 97.1 fL (81.0-99.0); MEAN PLATELET VOLUME 10.7 fL (7.9-10.8); MONOCYTES # (AUTO) 0.6 10^3/uL (0.0-1.0); MONOCYTES % (AUTO) 6.6 %; NEUTROPHILS # (AUTO) 6.1 10^3/uL (1.5-6.6); NEUTROPHILS % (AUTO) 71.4 %; PLT - PLATELET COUNT 181 10^3/uL (130-450); WHITE BLOOD COUNT 8.5 x10^3/uL (4.8-10.8)
[2020-08-10 22:47] LABS: ALBUMIN 4.5 g/dL (3.2-5.5); ALBUMIN/GLOBULIN RATIO 1.6 (1.0-2.2); ALKALINE PHOSPHATASE 61 IU/L (42-121); ALT ALANINE AMINOTRANSFERASE 12 IU/L (10-60); AST ASPARTATE AMINOTRANSFERASE 17 IU/L (10-42); BILIRUBIN,TOTAL 1.1 mg/dL (0.2-1.0); BUN - BLOOD UREA NITROGEN 16 mg/dL (6-20); CALCIUM 9.2 mg/dL (8.5-10.3); CARBON DIOXIDE - CO2 24 mmol/L (21-32); CHLORIDE 109 mmol/L (101-111); CREATININE 0.8 mg/dL (0.4-1.0); GFR - MDRD 89 (>89); GLUCOSE 111 mg/dL (70-100); LIPASE 29 U/L (22-51); POTASSIUM 3.6 mmol/L (3.5-5.0); SODIUM 142 mmol/L (135-145); TOTAL PROTEIN 7.3 g/dL (6.7-8.2)
[2020-08-10 22:58] LABS: CRP - C-REACTIVE PROTEIN < 1.0 mg/dL (0-1.0)
[2020-08-11 00:09] VITALS: BP 111/50
== END 2020-08-11 00:10 | disposition home or self-care (01) ==
LOC: ED 21:16 → SUPCPDRO 21:16 → ED 08-11 00:10
DX: R42 Dizziness and giddiness (principal); Z20.822 Contact with and (suspected) exposure to COVID-19
CPT/HCPCS: 36415; 80053; 81003; 81025; 83690; 85025; 86140; 87635; 99283; 99284; A9270; Q0162; 81001; 87086; 87661; 87801

== ENCOUNTER 2020-09-03 08:00 | Outpatient (CLI) | payer BC ==
[2020-09-03 18:00] LABS: BASOPHILS # (AUTO) 0.1 10^3/uL (0.0-0.1); BASOPHILS % (AUTO) 0.9 %; EOSINOPHILS # (AUTO) 0.1 10^3/uL (0.0-0.7); EOSINOPHILS % (AUTO) 1.5 %; HCT - HEMATOCRIT 42.8 % (37.0-47.0); HGB - HEMOGLOBIN 14.3 g/dL (12.0-16.0); LYMPHOCYTES # (AUTO) 2.2 10^3/uL (1.5-3.5); LYMPHOCYTES % (AUTO) 33.4 %; MEAN CORPUSCULAR HEMOGLOBIN 33.6 pg (27.0-31.0); MEAN CORPUSCULAR HGB CONC 33.4 g/dL (32.0-36.0); MEAN CORPUSCULAR VOLUME 100.7 fL (81.0-99.0); MEAN PLATELET VOLUME 11.4 fL (7.9-10.8); MONOCYTES # (AUTO) 0.6 10^3/uL (0.0-1.0); MONOCYTES % (AUTO) 8.8 %; NEUTROPHILS # (AUTO) 3.7 10^3/uL (1.5-6.6); PLT - PLATELET COUNT 198 10^3/uL (130-450); RED BLOOD COUNT 4.25 10^6/uL (4.20-5.40); RED CELL DISTRIBUTION WIDTH 12.4 % (12.0-15.0); WHITE BLOOD COUNT 6.7 x10^3/uL (4.8-10.8)
[2020-09-03 18:44] LABS: ALBUMIN 4.6 g/dL (3.2-5.5); ALBUMIN/GLOBULIN RATIO 1.4 (1.0-2.2); BILIRUBIN,TOTAL 1.6 mg/dL (0.2-1.0); CALCIUM 9.5 mg/dL (8.5-10.3); CREATININE 0.7 mg/dL (0.4-1.0); POTASSIUM 3.7 mmol/L (3.5-5.0); TOTAL PROTEIN 7.8 g/dL (6.7-8.2)
[2020-09-03 18:53] LABS: THYROID STIMULATING HORMONE 2.3 uIU/mL (0.34-5.60)
[2020-09-03 19:33] LABS: ESTIMATED AVERAGE GLUCOSE 82 mg/dL (70-100); HEMOGLOBIN A1c% 4.5 % (4.27-6.07)
== END 2020-09-03 23:59 | disposition home or self-care (01) ==
LOC: LAB.WCP 08:00
PROVIDERS: ATTEND Nurse Practitioner Family
DX: R63.4 Abnormal weight loss (principal); R19.7 Diarrhea, unspecified
CPT/HCPCS: 36415; 80053; 83036; 84443; 85025